=== PATIENT | male | born 1975 | race Caucasian/White ===

== ENCOUNTER 2024-02-28 15:02 | Inpatient (IN) | payer BC, OTHER ==
[2024-02-28 16:31] LABS: #Basophils 0.06 10x3/uL (0.0-0.2); %Basophils 0.7 % (0.0-1.0); %Eosinophils 2.1 % (0.0-10.0); %Lymphocytes 21.9 % (21.0-51.0); %Monocytes 8.5 % (0.0-10.0); %Neutrophils 66.3 % (42.0-75.0); Hematocrit 44.5 % (42.0-52.0); Hemoglobin 15.2 g/dL (14.0-18.0); Mean Corpuscular HGB CONC 34.2 g/dL (32.0-36.0); Mean Corpuscular Volume 90.6 fL (78.0-98.0); Mean Platelet Volume 11.1 fL (7.4-10.4); Platelet Count 202 10x3/uL (130-400); RBC Distribution Width 13.2 % (11.5-14.5); Red Blood Cell (RBC) Count 4.91 mill/uL (4.70-6.10)
[2024-02-28] MEDS ORDERED: Ketorolac Tromethamine 30 MG (1 mL) VIAL ONE (16:34)
[2024-02-28] MEDS ORDERED: Dexamethasone 10 MG/ML VIAL ONE (16:34)
[2024-02-28] MEDS ORDERED: Morphine 2 MG/ML VIAL ONE (16:35)
[2024-02-28 16:51] LABS: ALT (SGPT) 21 U/L (8-55); AST (SGOT) 16 U/L (5-34); Albumin 3.6 g/dL (3.5-5.0); Alkaline Phosphatase 72 U/L (40-110); Anion Gap 11 mmol/L (10-20); BUN (Urea Nitrogen) 13 mg/dL (8.9-20.6); Bilirubin, Total 0.3 mg/dL (0.2-1.2); CRP,High Sensitivity (Inhouse) 0.07 mg/dL (< or = 0.5); Calc. Creatinine Clearance 0 mL/min (70-130); Calcium 8.4 mg/dL (7.8-10.44); Carbon Dioxide 25 mmol/L (22-29); Chloride 108 mmol/L (98-107); Estimated GFR 82; Globulin 3.2 g/dL (2.4-3.5); Glucose 106 mg/dL (70-105); Potassium 4.4 mmol/L (3.5-5.1); Protein, Total 6.8 g/dL (6.0-8.3); Sodium 140 mmol/L (136-145)
[2024-02-28] MEDS ORDERED: Lidocaine 4% Patch ONE (16:54)
[2024-02-28] MEDS ORDERED: LORazepam 2 MG/ML SYR.(CARPUJECT) ONE (17:54)
[2024-02-28] MEDS ORDERED: Morphine 10 MG/ML VIAL ONE (20:56)
[2024-02-28] MEDS ORDERED: Acetaminophen 325 MG TAB PO PRN (23:17)
[2024-02-28] MEDS ORDERED: Ondansetron PF 4 MG/2 ML Vial IVP PRN (23:17)
[2024-02-29] MEDS: Dexamethasone 4 mg/ml Vial SLOW IVP SCH (00:57)
[2024-02-29] MEDS: Tamsulosin HCl 0.4 MG CAP PO SCH ×2 (01:00→01:39)
[2024-02-29] MEDS: traMADol HCl 50 MG TAB PO PRN (01:00)
[2024-02-29] MEDS: Methocarbamol 1 GM in Sodium Chloride 0.9% 100 ML IVPB SCH (01:39)
[2024-02-29] MEDS: Methocarbamol 1 GM (10 mL) VIAL IVPB SCH (01:41)
[2024-02-29 01:45] VITALS: BMI 31.6
[2024-02-29] MEDS: Morphine 4 MG/ML VIAL SLOW IVP PRN (02:27)
[2024-02-29 07:45] LABS: #Basophils Less than 0.03 10x3/uL (0.0-0.2); #Eosinophils Less than 0.03 10x3/uL (0.0-0.7); %Basophils 0.1 % (0.0-1.0); %Lymphocytes 4.5 % (21.0-51.0); %Monocytes 1.8 % (0.0-10.0); %Neutrophils 93.2 % (42.0-75.0); Hematocrit 45.7 % (42.0-52.0); Hemoglobin 15.8 g/dL (14.0-18.0); Mean Corpuscular HGB CONC 34.6 g/dL (32.0-36.0); Mean Corpuscular Hemoglobin 30.3 pg (27.0-31.0); Mean Corpuscular Volume 87.5 fL (78.0-98.0); Mean Platelet Volume 11.2 fL (7.4-10.4); Platelet Count 225 10x3/uL (130-400); Red Blood Cell (RBC) Count 5.22 mill/uL (4.70-6.10)
[2024-02-29 08:05] LABS: Anion Gap 15 mmol/L (10-20); BUN (Urea Nitrogen) 15 mg/dL (8.9-20.6); Calc. Creatinine Clearance 175 mL/min (70-130); Calcium 8.7 mg/dL (7.8-10.44); Carbon Dioxide 21 mmol/L (22-29); Chloride 105 mmol/L (98-107); Estimated GFR 107; Glucose 210 mg/dL (70-105); Potassium 3.8 mmol/L (3.5-5.1); Sodium 137 mmol/L (136-145)
[2024-02-29] MEDS: Ketorolac Tromethamine 30 MG (1 mL) VIAL IVP PRN (11:56)
[2024-02-29] MEDS: fentaNYL 50 mcg/mL 1 mL Vial ONE (11:57)
[2024-02-29] MEDS: Polyethylene Glycol 3350 17 GM Packet PO SCH (12:05)
[2024-02-29] MEDS: fentaNYL 50 mcg/mL 1 mL Vial SLOW IVP SCH (13:11)
[2024-02-29] MEDS: Gabapentin 300 MG CAP PO SCH (15:41)
[2024-02-29] MEDS: fentaNYL 50 mcg/mL 1 mL Vial SLOW IVP PRN (15:41)
[2024-02-29] MEDS: Senokot S 8.6-50 MG TAB PO SCH (21:30)
[2024-02-29] MEDS: tiZANidine HCl 4 MG TAB PO SCH (21:30)
[2024-02-29] MEDS: Pantoprazole DR 40 MG TAB PO SCH (21:31)
[2024-03-01] MEDS: HYDROcodone/Acetaminophen 5/325 mg Tablet PO PRN (05:59)
[2024-03-01] MEDS: Polyethylene Glycol 3350 17 GM Packet PO SCH (09:22)
[2024-03-01] MEDS: HYDROcodone/Acetaminophen 7.5/325 mg Tablet PO PRN (12:15)
[2024-03-01] MEDS: Ibuprofen 600 MG TAB PO PRN (21:24)
[2024-03-01] MEDS: fentaNYL 50 mcg/mL 1 mL Vial SLOW IVP PRN (21:25)
[2024-03-03] MEDS ORDERED: fentaNYL 50 mcg/mL 1 mL Vial SLOW IVP PRN (08:13)
[2024-03-03] MEDS ORDERED: Lidocaine 4% Patch TD SCH (08:15)
[2024-03-03] MEDS: HYDROcodone/Acetaminophen 10/325 mg Tablet PO PRN (09:22)
[2024-03-03] MEDS: Dexamethasone 4 MG TAB PO SCH (09:22)
[2024-03-03] MEDS: Lidocaine 4% Patch TD SCH (09:23)
[2024-03-03] MEDS: REMOVAL TOP SCH (21:29)
[2024-03-03] MEDS: [UNRECOGNIZED DRUG - OTHER] TOP SCH (21:29)
[2024-03-04 12:00] VITALS: BP 126/80; TEMP 98.2
== END 2024-03-04 12:50 | disposition home or self-care (01) | DRG 552 ==
LOC: ERS 15:02 → SURG B 22:18 → OBSVTOIN 03-01 10:49
PROVIDERS: ADMIT Student in an Organized Health Care Education/Training Program; ATTEND Family Medicine
DX: M50.223 Other cervical disc displacement at C6-C7 level (principal); M54.50 Low back pain, unspecified; G47.33 Obstructive sleep apnea (adult) (pediatric); F98.8 Other specified behavioral and emotional disorders with onset usually occurring in childhood and adolescence; F41.9 Anxiety disorder, unspecified; I50.9 Heart failure, unspecified; R33.9 Retention of urine, unspecified; Z88.0 Allergy status to penicillin; Z88.8 Allergy status to other drugs, medicaments and biological substances; E66.9 Obesity, unspecified; Z68.31 Body mass index [BMI] 31.0-31.9, adult
CPT/HCPCS: 36415; 51702; 72141; 72146; 72148; 80048; 80053; 85025; 86141; 96365; 96375; 96376; G0378; J1100; J1885; J2060; J2270; J2272; J2800; J3010; J8540